=== PATIENT | male | born 1950 | race Caucasian/White ===

== ENCOUNTER 2022-07-01 20:03 | Inpatient (IN) | payer OTHER ==
[~2022-07-01] VITALS: Ht 165.1 cm; Wt 63.0 kg
[2022-07-01 20:07] VITALS: BP_SYST 141
--- NOTE | 2022-07-01 20:13 | NUR ---
PER SON, PATIENT FELL A WEEK AGO AND SINCE, HAS BEEN C/O RIGHT ARM PAIN, HEADACHE AND CHEST PAIN. NO PAIN AT THIS TIME. PATIENT HAS A HISTORY OF STROKE WITH RIGHT SIDED DEFICITS, NOTHING WORSE SINCE PREVIOUS STROKE.
--- NOTE | 2022-07-01 20:20 | NUR ---
PATIENT PLACED IN ROOM 7 FOR EVALUATION BY HARSHA EMT.
[2022-07-01 21:01] LABS: MONOCYTES # (AUTO) 0.4 K/uL (0.0-1.0); WHITE BLOOD COUNT (AUTO) 4.3 K/uL (4.8-10.8)
[2022-07-01 21:04] LABS: ANION GAP 12 (5-15); CALCIUM 8.8 mg/dL (8.4-11.0); CHLORIDE 101 mmol/L (98-107); GLUCOSE 217 mg/dL (70-99); POTASSIUM 3.3 mmol/L (3.5-5.1); SODIUM SERUM 140 mmol/L (136-145); UREA NITROGEN, BLOOD 15 mg/dL (8-21)
[2022-07-01 21:05] LABS: BASOPHILS % (AUTO) 0.9 % (0.0-2.0); EOSINOPHILS % (AUTO) 0.7 % (0.0-4.0); HEMOGLOBIN 11.2 g/dL (14.0-18.0); LYMPHOCYTES # (AUTO) 1.2 K/uL (1.0-5.5); LYMPHOCYTES % (AUTO) 28.1 % (20.5-51.5); MEAN CORPUSCULAR HEMOGLOBIN 27 pg (27-31); MEAN CORPUSCULAR HGB CONC 32 % (32-36); MEAN CORPUSCULAR VOLUME 85 fL (79.0-98.0); MONOCYTES % (AUTO) 9.4 % (1.7-9.3); NEUTROPHILS # (AUTO) 2.6 K/uL (1.8-7.7); NEUTROPHILS % (AUTO) 60.9 % (40.0-70.0); PLATELET COUNT (AUTO) 233 K/uL (130-430); RED BLOOD CELL COUNT(AUTO) 4.14 MIL/uL (4.2-6.2); RED CELL DISTRIBUTION WIDTH 14.7 % (9.0-15.0)
[2022-07-01 21:12] LABS: ALANINE AMINOTRANSFERASE 29 U/L (12-78); ALBUMIN 3.6 g/dL (3.4-4.8); ASPARTATE AMINOTRANSFERASE 23 U/L (10-37); TOTAL BILIRUBIN < 0.1 mg/dL (0.0-1.0)
--- NOTE | 2022-07-01 21:40 | NUR ---
ASSUME CARE OF PT AT THIS TIME IN BED 7 BY GRETEL FONG , NO REPORT GIVEN, PT LAYING IN BED, PLACED PT ON CARDROOM SUPERVISOR, SON AT BEDSIDE, BRITISH SPEAKING, PT JUST ARRIVED FROM [place] TODAY, PT C/O CP/HEADACHE X 1.5 WEEKS AND WAS NOT SEEN FOR IT, HX CVA(2012) WITH RIGHT SIDE DEFICIT, HTN, DM. PT DID NOT BRING MEDICATION WITH HIM OR LIST. UNKNOWN MEDS. NKDA
--- NOTE | 2022-07-01 21:50 | NUR ---
COVID SWAB OBTAINED AND SENT TO LAB FOR PROCESSING
--- NOTE | 2022-07-01 22:12 | NUR ---
Unable to obtain home medicines, patient unable to give names/doses of his medicines.
[2022-07-01] MEDS ORDERED: ASPIRIN 325 MG TABLET PO ONE (22:30)
--- NOTE | 2022-07-01 22:32 | NUR ---
Admit bed requested Patient will be admitted to care of . Admitted to TELEMETRY unit. Diagnosis ACUTE CORONARY SYNDROME Inpatient (Yes or No) YES Observation (Yes or No) N Orientation concerns or request close to nursing station (Yes or No) YES Covid Status NEG On vent or bipap N Isolation requirements N Needs a sitter N From Home (Yes or if No enter name of facility) Y Requires Dialysis (Yes or No) N Med Rec Completed (Yes of No) N
--- NOTE | 2022-07-01 23:57 | NUR ---
CONSULTATION PAGED/CALLED Reason for Consultation: acute coronary syndrome Person Who was Notified: Chayito Consulting Physician: DR. VICKERS Internet Marketing Manager Specialty: INDUSTRIAL PIPEFITTER JOURNEYMAN Ordering Physician: DR. HANSON
--- NOTE | 2022-07-02 | NUR ---
Patient will be admitted to care of RILEY FONG. Admitted to TELE unit. Will go to room 104. Belongings list completed. Complete and up to date summary report printed. SBAR report to be given at bedside with opportunity for questions.
--- NOTE | 2022-07-02 | NUR ---
Vitals done and recorded
--- NOTE | 2022-07-02 | NUR ---
I received a Portuguese speaking man with right weakness following a stroke in 2012.son who is the fast food supervisor says that pt arrived from [place] but noted him deteriorating each day he Skyped with him. pt is on unknown medications but takes clonazepam to relieve anxiety .he denies chest pains, or having seizures lately. states he fell at home a week ago when walking.on assessment pt able to move lower extremities and the left arm.vitals updated
--- NOTE | 2022-07-02 05:56 | NUR ---
CONSULTATION PAGED/CALLED Reason for Consultation: ACUTE CORONARY SYNDROME Person Who was Notified: DR. PARSONS VIA TEXT Consulting Physician: DR. PARSONS Supervisor Multifocal Lens Specialty: NEURO Ordering Physician: DR. HANSON
[2022-07-02 06:00] VITALS: BP_SYST 133
[2022-07-02 06:30] LABS: INR 1.1 (0.80-1.20); PROTHROMBIN TIME 10.7 SECS (9.5-12.5)
[2022-07-02 06:41] LABS: BASOPHILS % (AUTO) 0.7 % (0.0-2.0); EOSINOPHILS # (AUTO) 0.1 K/uL (0.0-0.4); EOSINOPHILS % (AUTO) 1.3 % (0.0-4.0); HEMATOCRIT 31.5 % (36-54); HEMOGLOBIN 10.4 g/dL (14.0-18.0); LYMPHOCYTES # (AUTO) 1.3 K/uL (1.0-5.5); LYMPHOCYTES % (AUTO) 32.8 % (20.5-51.5); MEAN CORPUSCULAR HEMOGLOBIN 28 pg (27-31); MEAN CORPUSCULAR HGB CONC 33 % (32-36); MEAN CORPUSCULAR VOLUME 84 fL (79.0-98.0); MONOCYTES # (AUTO) 0.4 K/uL (0.0-1.0); NEUTROPHILS # (AUTO) 2.2 K/uL (1.8-7.7); NEUTROPHILS % (AUTO) 56.2 % (40.0-70.0); PLATELET COUNT (AUTO) 214 K/uL (130-430); RED BLOOD CELL COUNT(AUTO) 3.76 MIL/uL (4.2-6.2); RED CELL DISTRIBUTION WIDTH 14.5 % (9.0-15.0)
[2022-07-02 08:00] VITALS: BP_SYST 115
--- NOTE | 2022-07-02 08:00 | NUR ---
Recd pt a/ox4, right arm weakness noted, pt npo. notified DR Martin and obtained order for IVF @50ml/hr, order carried out. Am assessment done and charted. Son at the bedside, continue to monitor pt closely.
[2022-07-02] MEDS: D5/0.45 NS 1,000 ML IV SCH (08:10)
[2022-07-02 08:52] LABS: ALANINE AMINOTRANSFERASE 24 U/L (12-78); ALBUMIN 3.3 g/dL (3.4-4.8); ANION GAP 8 (5-15); ASPARTATE AMINOTRANSFERASE 20 U/L (10-37); CALCIUM 8.2 mg/dL (8.4-11.0); CHLORIDE 102 mmol/L (98-107); CREATININE 0.56 mg/dL (0.55-1.30); GLUCOSE 144 mg/dL (70-99); POTASSIUM 3.2 mmol/L (3.5-5.1); SODIUM SERUM 141 mmol/L (136-145); TOTAL BILIRUBIN 0.2 mg/dL (0.0-1.0); UREA NITROGEN, BLOOD 13 mg/dL (8-21)
--- NOTE | 2022-07-02 10:00 | NUR ---
Dr Justin at the bedside, updated pt and son at the bedside, obtained order for ECHO and 2gm NA diet, orders carried out. Will continue to monitor pt closely.
[2022-07-02] MEDS ORDERED: LevETIRAcetam 500 MG/5 ML UDC ORAL LIQUID PO ONE (11:00)
[2022-07-02 11:13] LABS: CHOLESTEROL 154 mg/dL (<200); HDL CHOLESTEROL 62 mg/dL (>45); LDL CHOLESTEROL 87 mg/dL (<100); TRIGLYCERIDES 40 mg/dL (30-150)
[2022-07-02 11:27] VITALS: BP_SYST 125
--- NOTE | 2022-07-02 12:00 | NUR ---
Escorted pt with walker to the bathroom with stand by assist. pt had bm.
--- NOTE | 2022-07-02 14:00 | NUR ---
Physical therapist at the bedside, and ambulated pt around the nurses' station. pt tolerated well.
--- NOTE | 2022-07-02 14:20 | NUR ---
Notified Dr Justin, K level=3.2, obtained order for K replacement, order carried out.
[2022-07-02] MEDS ORDERED: POTASSIUM CHLORIDE 20 MEQ/PKT PACKET PO ONE (15:00)
[2022-07-02 15:31] VITALS: BP_SYST 128
--- NOTE | 2022-07-02 16:00 | NUR ---
Pt resting comfortably, escorted pt to bathroom and escorted back to bed w/o difficulty.
--- NOTE | 2022-07-02 18:16 | NUR ---
PT WAS SEEN FOR DYSPHAGIA. PT WAS ABLE TO SAFELY SWALLOW REGULAR DIET WITH THIN LIQUID. HOWEVER, PT PREFERS MS DIET WITH THING LIQUID. RECOMMENDATION MS DIET WITH THIN LIQUID
--- NOTE | 2022-07-02 19:15 | NUR ---
OPENING NOTES Patient resting in bed - no s/s pain or distress noted. Respirations even and unlabored - head of bed elevated. IV site patent - no s/s redness, infection, or infiltration. Bed locked and in lowest position. Call light within reach.
--- NOTE | 2022-07-02 19:58 | NUR ---
CALLED DR. MARTIN for ACCUCHECK ORDER Patient has history of diabetes but no accucheck Dr. Martin orders ACHS accucheck with regular insulin sliding scale.
[2022-07-02 20:00] VITALS: BP_SYST 142
[2022-07-02] MEDS: LevETIRAcetam 500 MG/5 ML UDC ORAL LIQUID PO SCH (20:24)
[2022-07-02] MEDS: clonazePAM 0.5 MG TABLET PO SCH (20:25)
[2022-07-02] MEDS: INSULIN REGULAR, HUMAN 100 UNITS/ML, 10 ML VIAL (humuLIN R) SUBCUT PRN (20:33)
[2022-07-03] VITALS: BP_SYST 133
[2022-07-03] MEDS: D5/0.45 NS 1,000 ML IV SCH (06:51)
[2022-07-03] MEDS: INSULIN REGULAR, HUMAN 100 UNITS/ML, 10 ML VIAL (humuLIN R) SUBCUT PRN ×3 (06:55→22:30)
[2022-07-03 08:00] VITALS: BP_SYST 130
[2022-07-03 08:34] LABS: ANION GAP 6 (5-15); CALCIUM 8.2 mg/dL (8.4-11.0); CHLORIDE 104 mmol/L (98-107); CREATININE 0.56 mg/dL (0.55-1.30); GLUCOSE 194 mg/dL (70-99); POTASSIUM 4.5 mmol/L (3.5-5.1); SODIUM SERUM 138 mmol/L (136-145); THYROID STIMULATING HORMONE 2.04 uIu/mL (0.36-3.74); UREA NITROGEN, BLOOD 13 mg/dL (8-21)
[2022-07-03] MEDS: ASPIRIN 81 MG TAB.CHEW PO SCH (09:49)
[2022-07-03] MEDS: LevETIRAcetam 500 MG/5 ML UDC ORAL LIQUID PO SCH ×2 (09:49→22:23)
[2022-07-03 09:51] LABS: CHOLESTEROL 161 mg/dL (<200); TRIGLYCERIDES 72 mg/dL (30-150)
[2022-07-03 09:52] LABS: HDL CHOLESTEROL 66 mg/dL (>45); LDL CHOLESTEROL 81 mg/dL (<100)
[2022-07-03] MEDS ORDERED: D5W 1,000 ML IV PRN (10:45)
[2022-07-03] MEDS ORDERED: GLUCOSE (DEXTROSE) ORAL GEL -Adults PO PRN (10:45)
[2022-07-03] MEDS ORDERED: DEXTROSE 50%-WATER 50 ML DISP.SYRIN IVP PRN (10:45)
--- NOTE | 2022-07-03 15:39 | NUR ---
DISCHARGE PLANNING Spoke with pt at bedside to discuss dc planning, states to call and speak with son. Called & lt msg with son Osmin Paez, ph [phone], to return call.
[2022-07-03 16:00] VITALS: BP_SYST 139
[2022-07-03 20:19] VITALS: BP_SYST 142
[2022-07-03] MEDS: clonazePAM 0.5 MG TABLET PO SCH (22:23)
[2022-07-04 01:29] VITALS: BP_SYST 153
[2022-07-04] MEDS: INSULIN REGULAR, HUMAN 100 UNITS/ML, 10 ML VIAL (humuLIN R) SUBCUT PRN ×2 (06:39→12:05)
[2022-07-04] MEDS: D5/0.45 NS 1,000 ML IV SCH ×2 (06:42)
[2022-07-04 07:48] LABS: ANION GAP 6 (5-15); CALCIUM 8.4 mg/dL (8.4-11.0); CHLORIDE 105 mmol/L (98-107); CREATININE 0.57 mg/dL (0.55-1.30); GLUCOSE 137 mg/dL (70-99); POTASSIUM 3.4 mmol/L (3.5-5.1); SODIUM SERUM 142 mmol/L (136-145); UREA NITROGEN, BLOOD 10 mg/dL (8-21)
[2022-07-04 08:00] VITALS: BP_SYST 142
[2022-07-04] MEDS: LevETIRAcetam 500 MG/5 ML UDC ORAL LIQUID PO SCH (09:38)
[2022-07-04] MEDS: ASPIRIN 81 MG TAB.CHEW PO SCH (09:38)
--- NOTE | 2022-07-04 14:30 | NUR ---
Discharge Planning: DCP faxed pt referral to [facility] [phone], [facility] to follow up Addendum: 07/04/22 at 1624 by Tami Neal DP DCP arranged transport with [facility] [phone] BLS 7:00pm to [facility] [phone] Rm 29. Patient packet taken to nurse station. Disposition 03
[2022-07-04 16:00] VITALS: BP_SYST 151
[2022-07-04 20:00] VITALS: BP_SYST 133
== END 2022-07-04 20:25 | DRG 313 ==
LOC: SED 20:03 → STU 22:27
PROVIDERS: ADMIT Internal Medicine; ATTEND Internal Medicine
DX: R07.89 Other chest pain (principal); I69.351 Hemiplegia and hemiparesis following cerebral infarction affecting right dominant side; G40.909 Epilepsy, unspecified, not intractable, without status epilepticus; E78.00 Pure hypercholesterolemia, unspecified; I10 Essential (primary) hypertension; Z20.822 Contact with and (suspected) exposure to COVID-19; E11.9 Type 2 diabetes mellitus without complications; Z91.81 History of falling; Z90.49 Acquired absence of other specified parts of digestive tract; I69.320 Aphasia following cerebral infarction
CPT/HCPCS: 36415; 70450-TC; 71045; 76376; 80048; 80053; 80061; 82962; 83036; 83735; 83880; 84443; 84484; 85025; 85610-TC; 85730-TC; 92610-GN; 93005; 93306; 97116-GP; 97530-GP; 99285; G0378; J1815